=== PATIENT | female | born 1960 | race Two or more races ===

== ENCOUNTER 2023-03-17 10:47 | Inpatient (IN) | payer BC, OTHER ==
[~2023-03-17] VITALS: Ht 165.1 cm; Wt 87.2 kg
[2023-03-17] MEDS ORDERED: ONDANSETRON HCL 4 MG/2 ML VIAL IV ONE ×3 (11:30→11:45)
[2023-03-17] MEDS ORDERED: SODIUM CHLORIDE 0.9% 1,000 ML IVB ONE ×2 (11:30→11:45)
[2023-03-17] MEDS: MAGNESIUM SULFATE 1GM/100ML 100 ML IV SCH ×2 (11:45→12:45)
[2023-03-17] MEDS ORDERED: LORazepam 2MG/ML-1ML VIAL IV ONE (11:45)
[2023-03-17] MEDS ORDERED: TETANUS-DIPTH-ACEL PERTUSSIS 0.5ML SYR Tdap IM ONE (11:45)
[2023-03-17] MEDS ORDERED: THIAMINE 100mg/ml INJ (200mg/2ml VIAL) IV ONE (11:45)
[2023-03-17] MEDS ORDERED: MVI in SODIUM CHLORIDE 0.9% 1,010 ML IV ONE (11:45)
[2023-03-17] MEDS ORDERED: PANTOPRAZOLE 40 MG/10 ML VIAL INJ IV ONE (11:45)
[2023-03-17] MEDS ORDERED: ACETAMINOPHEN 325 MG TAB PO ONE (11:45)
[2023-03-17] MEDS ORDERED: SODIUM CHLORIDE 0.9% 1,000 ML IV ONE (11:45)
[2023-03-17 11:57] LABS: Basophils # (auto) 0.1 10 ^3/uL (0-0.2); Basophils % (auto) 0.3 % (0.0-2.0); Eosinophils # (auto) 0 10 ^3/uL (0-0.8); Hematocrit 44.2 % (36.0-46.0); Hemoglobin 14.8 g/dL (12.2-16.2); Lymphocytes # (auto) 0.9 10 ^3/uL (0.4-5.4); Lymphocytes % (auto) 4.5 % (10.0-50.0); Mean Corpuscular Hemoglobin 30.6 pg (28.0-32.0); Mean Corpuscular Hgb Conc. 33.6 g/dL (32.0-36.0); Mean Corpuscular Volume 91.1 fL (80.0-100.0); Monocytes # (auto) 2.5 10 ^3/uL (0-1.3); Monocytes % (auto) 13.1 % (0.0-12.0); Neutrophils # (auto) 15.9 10 ^3/uL (1.6-8.6); Neutrophils % (auto) 82.1 % (37.0-80.0); Red Blood Cells 4.85 10^6/uL (4.0-5.20); Red Cell Distribution Width 13.8 % (11.8-14.3); White Blood Cell 19.4 10^3/uL (4.4-10.8)
[2023-03-17 12:12] LABS: INR 1.09 (0.9-1.15); Partial Thromboplastin Time 29.3 SEC (24.5-34.5); Prothrombin Time 11.4 sec (9.3-11.8)
[2023-03-17 12:33] LABS: Alanine Aminotransferase 31 U/L (7-40); Albumin 4.4 g/dL (3.2-4.8); Alkaline Phosphatase 75 U/L (46-116); Anion Gap 12 (5-15); Aspartate Aminotransferase 21 U/L (13-40); BUN/Creatinine Ratio 19.7 (10.0-20.0); Bilirubin, Total 1.5 mg/dL (0.2-1.0); Blood Urea Nitrogen 24 mg/dL (9-23); Calcium 10.8 mg/dL (8.5-10.1); Carbon Dioxide 24 mmol/L (20-30); Chloride 104 mmol/L (98-107); Glucose 145 mg/dL (74-106); Potassium 3.8 mmol/L (3.5-5.1); Sodium 140 mmol/L (136-145); Total Protein 6.6 g/dL (5.7-8.2)
[2023-03-17 12:42] LABS: Acetaminophen < 2.0 UG/ML (10.0-20.0)
[2023-03-17 12:43] LABS: Salicylate < 3.0 mg/dL (2.8-20.0)
[2023-03-17 12:45] LABS: Urine Bacteria NONE SEEN /hpf (None Seen); Urine Blood Negative /uL (Negative); Urine Clarity Clear (Clear); Urine Color Yellow (Yellow); Urine Hyaline Cast MANY /lpf (0 - 2); Urine Mucus FEW (None Seen); Urine Protein, UAD TRACE (Negative); Urine Specific Gravity 1.017 (1.001-1.035); Urine Urobilinogen Normal (Negative); Urine WBC 1 /hpf (0 - 5); Urine pH 5.5 (5.0-8.0)
[2023-03-17 13:03] LABS: Amphetamine Screen, Urine Neg (NEGATIVE)
[2023-03-17 13:04] LABS: Barbiturate Scree,Urine Neg (NEGATIVE); Benzodiazephine Screen, Urine Neg (NEGATIVE); Cannabinoid Screen, Urine Neg (NEGATIVE); Cocaine Screen, Urine Neg (NEGATIVE); Opiate Scree,Urine Neg (NEGATIVE); Phencyclidine Screen, Urine Neg (NEGATIVE)
[2023-03-17 13:40] LABS: Magnesium 2.1 mg/dL (1.6-2.6)
[2023-03-17] MEDS ORDERED: PIPERACILLIN-TAZOB 3.375GM 100 ML IV ONE (14:15)
[2023-03-17] MEDS ORDERED: ALBUMIN 25% 100 ML IV ONE (14:15)
[2023-03-17] MEDS ORDERED: SODIUM CHLORIDE 0.9% 2,100 ML IV ONE (14:15)
[2023-03-17] MEDS ORDERED: VANCOMYCIN PER PHARMACY 0 MG IV SCH ×2 (14:15→16:00)
[2023-03-17 14:36] LABS: Lactic Acid w/Reflex 2.2 mmol/L (0.4-2.0)
[2023-03-17] MEDS ORDERED: ONDANSETRON HCL 4 MG/2 ML VIAL IV PRN (16:00)
[2023-03-17] MEDS: SODIUM CHLORIDE 0.9% 1,000 ML IV SCH (16:00)
[2023-03-17] MEDS ORDERED: NITROGLYCERIN 0.4 MG SL TAB SL PRN (16:00)
[2023-03-17] MEDS ORDERED: ACETAMINOPHEN 325 MG TAB PO PRN (16:00)
[2023-03-17] MEDS ORDERED: MORPHINE SULFATE INJ 2 MG/ml SYRG IV PRN (16:00)
[2023-03-17] MEDS ORDERED: VANCOMYCIN 1GM/250ML 250 ML IV ONE (18:00)
[2023-03-17 19:55] VITALS: PULSE 102; RESP 15; O2SAT 98
[2023-03-17] MEDS: CEFEPIME 1GM/ 50ML 50 ML IV SCH (22:29)
[2023-03-18] MEDS: SODIUM CHLORIDE 0.9% 1,000 ML IV SCH ×3 (00:01→16:41)
[2023-03-18] MEDS: MORPHINE SULFATE INJ 2 MG/ml SYRG IV PRN (00:17)
[2023-03-18] MEDS: HYDROcodone-ACET 5/325MG TAB PO PRN (02:58)
[2023-03-18 05:00] LABS: Basophils # (auto) 0 10 ^3/uL (0-0.2); Basophils % (auto) 0.3 % (0.0-2.0); Eosinophils # (auto) 0.1 10 ^3/uL (0-0.8); Hematocrit 38.4 % (36.0-46.0); Hemoglobin 12.9 g/dL (12.2-16.2); Lymphocytes # (auto) 1.7 10 ^3/uL (0.4-5.4); Mean Corpuscular Hemoglobin 31.1 pg (28.0-32.0); Mean Corpuscular Hgb Conc. 33.6 g/dL (32.0-36.0); Mean Corpuscular Volume 92.4 fL (80.0-100.0); Monocytes # (auto) 1.5 10 ^3/uL (0-1.3); Neutrophils # (auto) 8.1 10 ^3/uL (1.6-8.6); Neutrophils % (auto) 70.7 % (37.0-80.0); Red Blood Cells 4.16 10^6/uL (4.0-5.20); Red Cell Distribution Width 14.1 % (11.8-14.3); White Blood Cell 11.4 10^3/uL (4.4-10.8)
[2023-03-18 05:25] LABS: Alanine Aminotransferase 25 U/L (7-40); Albumin 3.4 g/dL (3.2-4.8); Alkaline Phosphatase 62 U/L (46-116); Anion Gap 7 (5-15); Aspartate Aminotransferase 23 U/L (13-40); BUN/Creatinine Ratio 17.6 (10.0-20.0); Bilirubin, Total 1.1 mg/dL (0.2-1.0); Blood Urea Nitrogen 9 mg/dL (9-23); Calcium 8.9 mg/dL (8.7-10.4); Carbon Dioxide 24 mmol/L (20-30); Glucose 87 mg/dL (74-106); Potassium 3.3 mmol/L (3.5-5.1); Sodium 145 mmol/L (136-145); Total Protein 5.3 g/dL (5.7-8.2)
[2023-03-18 05:31] LABS: Chloride 114 mmol/L (98-107)
[2023-03-18 05:51] LABS: Triglycerides 53 mg/dL (< 150)
[2023-03-18 05:52] LABS: LDL Cholesterol 43 mg/dL (< 100)
[2023-03-18 05:53] LABS: Cholesterol 109 mg/dL (< 200); HDL Cholesterol 48 mg/dL (40-59)
[2023-03-18 07:39] VITALS: PULSE 103; RESP 19; O2SAT 97
[2023-03-18] MEDS: ENOXAPARIN SOD 40 MG/0.4 ML SYRINGE SC SCH (09:38)
[2023-03-18] MEDS: PANTOPRAZOLE 40 MG/10 ML VIAL INJ IV SCH (09:38)
[2023-03-18] MEDS: CEFEPIME 1GM/ 50ML 50 ML IV SCH ×2 (10:03→22:15)
[2023-03-18] MEDS: VANCOMYCIN 1GM/250ML 250 ML IV SCH (11:12)
[2023-03-18] MEDS ORDERED: SODIUM CHLORIDE 0.9% 500 ML IV ONE (12:00)
[2023-03-18] MEDS: FOLIC ACID 1 MG, MULTIPLE VITAMIN 10 ML, MAGNESIUM SULF SDV 50% 8 MEQ, THIAMINE INJ 100... INJ SCH ×5 (12:00)
[2023-03-18] MEDS ORDERED: LORazepam 2MG/ML-1ML VIAL IV PRN (12:00)
[2023-03-18 21:13] VITALS: PULSE 113; RESP 22; O2SAT 95
[2023-03-19] MEDS: SODIUM CHLORIDE 0.9% 1,000 ML IV SCH ×3 (00:30→16:00)
[2023-03-19] MEDS: MORPHINE SULFATE INJ 2 MG/ml SYRG IV PRN (02:28)
[2023-03-19] MEDS: VANCOMYCIN 1GM/250ML 250 ML IV SCH ×2 (04:52→20:04)
[2023-03-19 08:00] VITALS: PULSE 97; RESP 18
[2023-03-19] MEDS ORDERED: DEXTROSE (50%) 50ML SYRG IV PRN (08:45)
[2023-03-19 09:37] LABS: Alanine Aminotransferase 26 U/L (7-40); Albumin 3.6 g/dL (3.2-4.8); Alkaline Phosphatase 65 U/L (46-116); Anion Gap 5 (5-15); Aspartate Aminotransferase 17 U/L (13-40); Calcium 9.3 mg/dL (8.5-10.1); Carbon Dioxide 29 mmol/L (20-30); Chloride 109 mmol/L (98-107); Glucose 104 mg/dL (74-106); Potassium 3.4 mmol/L (3.5-5.1); Sodium 143 mmol/L (136-145)
[2023-03-19 09:38] LABS: Bilirubin, Total 1.1 mg/dL (0.2-1.0); Total Protein 5.8 g/dL (5.7-8.2)
[2023-03-19 09:39] LABS: BUN/Creatinine Ratio 8.6 (10.0-20.0); Blood Urea Nitrogen < 5 mg/dL (9-23)
[2023-03-19] MEDS: CEFEPIME 1GM/ 50ML 50 ML IV SCH ×2 (10:26→21:44)
[2023-03-19] MEDS: PANTOPRAZOLE 40 MG/10 ML VIAL INJ IV SCH (10:26)
[2023-03-19] MEDS: ENOXAPARIN SOD 40 MG/0.4 ML SYRINGE SC SCH (10:26)
[2023-03-19] MEDS: InsuLIN REG 1unit/0.01ml Soln (100units/ml) SC SCH ×3 (11:30→21:45)
[2023-03-19] MEDS: ACCU-CHEK COMFORT CURVE STRIP VI SCH ×3 (11:30→21:45)
[2023-03-19] MEDS: FOLIC ACID 1 MG, MULTIPLE VITAMIN 10 ML, MAGNESIUM SULF SDV 50% 8 MEQ, THIAMINE INJ 100... INJ SCH ×5 (12:58)
[2023-03-19 19:20] VITALS: PULSE 92; RESP 20; O2SAT 96
[2023-03-19] MEDS: HYDROcodone-ACET 5/325MG TAB PO PRN (21:45)
[2023-03-20] MEDS: SODIUM CHLORIDE 0.9% 1,000 ML IV SCH ×3 (00:32→16:00)
[2023-03-20 05:20] LABS: Calcium 8.7 mg/dL (8.7-10.4); Chloride 107 mmol/L (98-107); Potassium 3.1 mmol/L (3.5-5.1); Sodium 141 mmol/L (136-145)
[2023-03-20 05:26] LABS: Glucose 107 mg/dL (74-106)
[2023-03-20 05:27] LABS: Carbon Dioxide 27 mmol/L (20-30)
[2023-03-20 05:38] LABS: BUN/Creatinine Ratio 11.6 (10.0-20.0); Blood Urea Nitrogen < 5 mg/dL (9-23)
[2023-03-20 06:18] LABS: Anion Gap 5 (5-15)
[2023-03-20] MEDS: InsuLIN REG 1unit/0.01ml Soln (100units/ml) SC SCH ×4 (06:27→22:24)
[2023-03-20] MEDS: ACCU-CHEK COMFORT CURVE STRIP VI SCH ×4 (06:28→22:09)
[2023-03-20 08:17] LABS: Basophils # (auto) 0 10 ^3/uL (0-0.2); Basophils % (auto) 0.5 % (0.0-2.0); Eosinophils # (auto) 0.3 10 ^3/uL (0-0.8); Eosinophils % (auto) 3.5 % (0.0-7.0); Hematocrit 40.2 % (36.0-46.0); Hemoglobin 13.7 g/dL (12.2-16.2); Lymphocytes # (auto) 1.2 10 ^3/uL (0.4-5.4); Lymphocytes % (auto) 12.7 % (10.0-50.0); Mean Corpuscular Hemoglobin 31.5 pg (28.0-32.0); Mean Corpuscular Hgb Conc. 34.1 g/dL (32.0-36.0); Mean Corpuscular Volume 92.3 fL (80.0-100.0); Monocytes # (auto) 1.2 10 ^3/uL (0-1.3); Monocytes % (auto) 13.4 % (0.0-12.0); Neutrophils # (auto) 6.4 10 ^3/uL (1.6-8.6); Neutrophils % (auto) 69.9 % (37.0-80.0); Nucleated Red Blood Cells % 0.1 %; Red Blood Cells 4.36 10^6/uL (4.0-5.20); Red Cell Distribution Width 13.6 % (11.8-14.3); White Blood Cell 9.2 10^3/uL (4.4-10.8)
[2023-03-20 08:30] VITALS: PULSE 92; RESP 22; O2SAT 94
[2023-03-20] MEDS ORDERED: POTASSIUM CHL 20 Meq TABLET PO ONE (08:30)
[2023-03-20] MEDS: CEFEPIME 1GM/ 50ML 50 ML IV SCH (09:01)
[2023-03-20] MEDS: VANCOMYCIN 1GM/250ML 250 ML IV SCH (09:04)
[2023-03-20] MEDS: LABETALOL HCL 5 MG/ML 4ML SYRINGE IV PRN ×2 (09:12→16:35)
[2023-03-20] MEDS: PANTOPRAZOLE 40 MG/10 ML VIAL INJ IV SCH (10:28)
[2023-03-20] MEDS: ENOXAPARIN SOD 40 MG/0.4 ML SYRINGE SC SCH (10:28)
[2023-03-20] MEDS: FOLIC ACID 1 MG, MULTIPLE VITAMIN 10 ML, MAGNESIUM SULF SDV 50% 8 MEQ, THIAMINE INJ 100... INJ SCH ×5 (12:45)
[2023-03-20] MEDS: DOCUSATE SOD 100 MG CAP PO PRN (15:49)
[2023-03-20] MEDS: HYDROcodone-ACET 5/325MG TAB PO PRN (15:50)
[2023-03-20 19:01] VITALS: PULSE 81; RESP 18; O2SAT 91
[2023-03-20 20:00] VITALS: PULSE 99
[2023-03-20] MEDS ORDERED: CHOL1CAP21 PO (20:56)
[2023-03-20] MEDS ORDERED: LOSA100T33 PO (20:58)
[2023-03-20 21:31] VITALS: BP 158/80; PULSE 110; RESP 22; TEMP 98.2; O2SAT 92
[2023-03-21] VITALS (7 sets, daily range): BP systolic 129–157; BP diastolic 71–97; PULSE 91–121; RESP 16–19; TEMP 98.2–98.7; O2SAT 93–97
[2023-03-21] MEDS: SODIUM CHLORIDE 0.9% 1,000 ML IV SCH ×4 (02:09→21:49)
[2023-03-21] MEDS: InsuLIN REG 1unit/0.01ml Soln (100units/ml) SC SCH ×4 (07:00→21:53)
[2023-03-21] MEDS: ACCU-CHEK COMFORT CURVE STRIP VI SCH ×4 (07:11→21:53)
[2023-03-21] MEDS: HYDROcodone-ACET 5/325MG TAB PO PRN ×2 (07:14→20:09)
[2023-03-21 07:17] LABS: Basophils # (auto) 0 10 ^3/uL (0-0.2); Basophils % (auto) 0.5 % (0.0-2.0); Eosinophils # (auto) 0.2 10 ^3/uL (0-0.8); Eosinophils % (auto) 4.2 % (0.0-7.0); Hematocrit 40.4 % (36.0-46.0); Hemoglobin 13.7 g/dL (12.2-16.2); Lymphocytes # (auto) 0.8 10 ^3/uL (0.4-5.4); Lymphocytes % (auto) 14.4 % (10.0-50.0); Mean Corpuscular Hemoglobin 30.9 pg (28.0-32.0); Mean Corpuscular Hgb Conc. 33.8 g/dL (32.0-36.0); Mean Corpuscular Volume 91.4 fL (80.0-100.0); Monocytes # (auto) 0.6 10 ^3/uL (0-1.3); Monocytes % (auto) 11.4 % (0.0-12.0); Neutrophils # (auto) 3.8 10 ^3/uL (1.6-8.6); Neutrophils % (auto) 69.5 % (37.0-80.0); Red Blood Cells 4.42 10^6/uL (4.0-5.20); White Blood Cell 5.4 10^3/uL (4.4-10.8)
[2023-03-21 07:36] LABS: Albumin 3.5 g/dL (3.2-4.8); Alkaline Phosphatase 327 U/L (46-116); Anion Gap 7 (5-15); Calcium 8.8 mg/dL (8.7-10.4); Carbon Dioxide 27 mmol/L (20-30); Chloride 108 mmol/L (98-107); Glucose 99 mg/dL (74-106); Magnesium 2.3 mg/dL (1.6-2.6); Potassium 3.8 mmol/L (3.5-5.1); Sodium 142 mmol/L (136-145)
[2023-03-21 07:37] LABS: Bilirubin, Total 3.8 mg/dL (0.2-1.0); Total Protein 5.7 g/dL (5.7-8.2)
[2023-03-21 07:48] LABS: Aspartate Aminotransferase 1784 U/L (13-40)
[2023-03-21 08:30] LABS: Alanine Aminotransferase 1925 U/L (7-40); BUN/Creatinine Ratio 10.4 (10.0-20.0); Blood Urea Nitrogen < 5 mg/dL (9-23)
[2023-03-21] MEDS: PANTOPRAZOLE 40 MG/10 ML VIAL INJ IV SCH (09:41)
[2023-03-21] MEDS: ENOXAPARIN SOD 40 MG/0.4 ML SYRINGE SC SCH (09:42)
[2023-03-21] MEDS: FOLIC ACID 1 MG, MULTIPLE VITAMIN 10 ML, MAGNESIUM SULF SDV 50% 8 MEQ, THIAMINE INJ 100... INJ SCH ×5 (12:00)
[2023-03-21] MEDS ORDERED: FOLIC ACID 1 MG, MULTIPLE VITAMIN 10 ML, MAGNESIUM SULF SDV 50% 8 MEQ, THIAMINE INJ 100... INJ ONE ×5 (20:00)
[2023-03-21] MEDS: DOCUSATE SOD 100 MG CAP PO PRN (21:48)
[2023-03-22] VITALS (7 sets, daily range): BP systolic 124–144; BP diastolic 63–86; PULSE 98–121; RESP 16–20; TEMP 97.6–98.5; O2SAT 90–94
[2023-03-22] MEDS: ACCU-CHEK COMFORT CURVE STRIP VI SCH ×4 (06:24→22:08)
[2023-03-22] MEDS: InsuLIN REG 1unit/0.01ml Soln (100units/ml) SC SCH ×4 (06:30→22:00)
[2023-03-22 06:37] LABS: Basophils # (auto) 0 10 ^3/uL (0-0.2); Basophils % (auto) 0.5 % (0.0-2.0); Eosinophils # (auto) 0.4 10 ^3/uL (0-0.8); Eosinophils % (auto) 6.5 % (0.0-7.0); Hematocrit 39.9 % (36.0-46.0); Hemoglobin 13.5 g/dL (12.2-16.2); Lymphocytes # (auto) 0.9 10 ^3/uL (0.4-5.4); Lymphocytes % (auto) 15.3 % (10.0-50.0); Mean Corpuscular Hemoglobin 31.4 pg (28.0-32.0); Mean Corpuscular Hgb Conc. 33.9 g/dL (32.0-36.0); Mean Corpuscular Volume 92.8 fL (80.0-100.0); Monocytes # (auto) 0.8 10 ^3/uL (0-1.3); Monocytes % (auto) 14.1 % (0.0-12.0); Neutrophils # (auto) 3.8 10 ^3/uL (1.6-8.6); Neutrophils % (auto) 63.6 % (37.0-80.0); Red Cell Distribution Width 14.2 % (11.8-14.3)
[2023-03-22 06:49] LABS: Albumin 3.2 g/dL (3.2-4.8); Alkaline Phosphatase 300 U/L (46-116); Anion Gap 8 (5-15); Aspartate Aminotransferase 667 U/L (13-40); Bilirubin, Total 3.9 mg/dL (0.2-1.0); Calcium 8.3 mg/dL (8.7-10.4); Carbon Dioxide 26 mmol/L (20-30); Chloride 111 mmol/L (98-107); Glucose 107 mg/dL (74-106); Magnesium 2.3 mg/dL (1.6-2.6); Potassium 4.6 mmol/L (3.5-5.1); Sodium 145 mmol/L (136-145)
[2023-03-22 07:01] LABS: BUN/Creatinine Ratio 10.4 (10.0-20.0); Blood Urea Nitrogen < 5 mg/dL (9-23)
[2023-03-22] MEDS: SODIUM CHLORIDE 0.9% 1,000 ML IV SCH ×3 (08:00→22:07)
[2023-03-22] MEDS: PANTOPRAZOLE 40 MG/10 ML VIAL INJ IV SCH (09:03)
[2023-03-22] MEDS: ENOXAPARIN SOD 40 MG/0.4 ML SYRINGE SC SCH (09:03)
[2023-03-22] MEDS: FOLIC ACID 1 MG, MULTIPLE VITAMIN 10 ML, MAGNESIUM SULF SDV 50% 8 MEQ, THIAMINE INJ 100... INJ SCH ×5 (13:09)
[2023-03-22] MEDS: HYDROcodone-ACET 5/325MG TAB PO PRN (22:06)
[2023-03-22] MEDS: DOCUSATE SOD 100 MG CAP PO PRN (22:06)
[2023-03-23] VITALS (7 sets, daily range): BP systolic 123–138; BP diastolic 67–88; PULSE 96–117; RESP 18; TEMP 97.5–98.8; O2SAT 91–95
[2023-03-23] MEDS: InsuLIN REG 1unit/0.01ml Soln (100units/ml) SC SCH ×4 (06:24→21:35)
[2023-03-23] MEDS: ACCU-CHEK COMFORT CURVE STRIP VI SCH ×4 (06:24→21:34)
[2023-03-23] MEDS: SODIUM CHLORIDE 0.9% 1,000 ML IV SCH ×2 (06:25→16:00)
[2023-03-23] MEDS: ENOXAPARIN SOD 40 MG/0.4 ML SYRINGE SC SCH (09:57)
[2023-03-23] MEDS: PANTOPRAZOLE 40 MG/10 ML VIAL INJ IV SCH (09:57)
[2023-03-23] MEDS: FOLIC ACID 1 MG, MULTIPLE VITAMIN 10 ML, MAGNESIUM SULF SDV 50% 8 MEQ, THIAMINE INJ 100... INJ SCH ×5 (12:45)
[2023-03-23] MEDS: METOPROLOL TARTRATE 25 MG TAB PO SCH ×2 (13:42→21:35)
[2023-03-23] MEDS: MAGNESIUM SULFATE 1GM/100ML 100 ML IV SCH ×2 (14:16→16:03)
[2023-03-23 14:25] LABS: Chloride 110 mmol/L (98-107); Sodium 144 mmol/L (136-145)
[2023-03-23 14:26] LABS: Anion Gap 6 (5-15); Calcium 8.7 mg/dL (8.5-10.1); Carbon Dioxide 28 mmol/L (20-30)
[2023-03-23 14:31] LABS: Glucose 128 mg/dL (74-106)
[2023-03-23 14:39] LABS: BUN/Creatinine Ratio 9.6 (10.0-20.0); Blood Urea Nitrogen < 5 mg/dL (9-23)
[2023-03-23] MEDS: HYDROcodone-ACET 5/325MG TAB PO PRN (21:36)
[2023-03-23] MEDS: DOCUSATE SOD 100 MG CAP PO PRN (21:36)
[2023-03-24 05:00] VITALS: BP 145/93; PULSE 115; RESP 21; TEMP 98.5; O2SAT 91
[2023-03-24] MEDS: ACCU-CHEK COMFORT CURVE STRIP VI SCH ×2 (06:38→11:30)
[2023-03-24] MEDS: InsuLIN REG 1unit/0.01ml Soln (100units/ml) SC SCH ×2 (06:38→11:30)
[2023-03-24] MEDS: SODIUM CHLORIDE 0.9% 1,000 ML IV SCH ×2 (06:40→08:00)
[2023-03-24 08:00] VITALS: PULSE 117; RESP 16
[2023-03-24] MEDS: METOPROLOL TARTRATE 25 MG TAB PO SCH (08:19)
[2023-03-24] MEDS ORDERED: ADENOSINE 73 MG in GIVE UN-DILUTED 0 ML IV STA (08:29)
[2023-03-24 09:00] VITALS: BP 127/83; PULSE 108; RESP 16; TEMP 98.2; O2SAT 100
[2023-03-24 09:13] LABS: Hepatitis B Surface Antigen Negative (Negative)
[2023-03-24 09:33] LABS: Hepatitis A Ab IgM Negative
[2023-03-24 09:34] LABS: Hepatitis B Core IgM Negative; Hepatitis C Antibody Negative (Negative)
[2023-03-24] MEDS: PANTOPRAZOLE 40 MG/10 ML VIAL INJ IV SCH (10:10)
[2023-03-24] MEDS: ENOXAPARIN SOD 40 MG/0.4 ML SYRINGE SC SCH (10:11)
[2023-03-24 10:35] LABS: Basophils # (auto) 0.1 10 ^3/uL (0-0.2); Basophils % (auto) 0.7 % (0.0-2.0); Eosinophils # (auto) 0.4 10 ^3/uL (0-0.8); Eosinophils % (auto) 3.3 % (0.0-7.0); Hematocrit 40.6 % (36.0-46.0); Hemoglobin 13.5 g/dL (12.2-16.2); Lymphocytes # (auto) 1.1 10 ^3/uL (0.4-5.4); Lymphocytes % (auto) 10.3 % (10.0-50.0); Mean Corpuscular Hemoglobin 30.6 pg (28.0-32.0); Mean Corpuscular Hgb Conc. 33.4 g/dL (32.0-36.0); Mean Corpuscular Volume 91.8 fL (80.0-100.0); Monocytes # (auto) 1.4 10 ^3/uL (0-1.3); Monocytes % (auto) 12.7 % (0.0-12.0); Neutrophils # (auto) 8.1 10 ^3/uL (1.6-8.6); Red Blood Cells 4.42 10^6/uL (4.0-5.20); Red Cell Distribution Width 14.1 % (11.8-14.3)
[2023-03-24] MEDS ORDERED: MULTTAB99 GT (10:40)
[2023-03-24] MEDS ORDERED: METO25TA36 PO (10:40)
[2023-03-24] MEDS ORDERED: FOLI-119 PO (10:40)
[2023-03-24] MEDS ORDERED: THIA100T13 PO (10:40)
[2023-03-24 10:59] LABS: Alanine Aminotransferase 709 U/L (7-40); Alkaline Phosphatase 253 U/L (46-116); Anion Gap 5 (5-15); Aspartate Aminotransferase 147 U/L (13-40); Calcium 8.7 mg/dL (8.7-10.4); Carbon Dioxide 26 mmol/L (20-30); Chloride 112 mmol/L (98-107); Glucose 102 mg/dL (74-106); Magnesium 2.2 mg/dL (1.6-2.6); Potassium 3.5 mmol/L (3.5-5.1); Sodium 143 mmol/L (136-145)
[2023-03-24 11:00] LABS: Albumin 3.6 g/dL (3.2-4.8); BUN/Creatinine Ratio 9.8 (10.0-20.0); Bilirubin, Total 1.7 mg/dL (0.2-1.0); Blood Urea Nitrogen < 5 mg/dL (9-23)
[2023-03-24] MEDS: FOLIC ACID 1 MG, MULTIPLE VITAMIN 10 ML, MAGNESIUM SULF SDV 50% 8 MEQ, THIAMINE INJ 100... INJ SCH ×5 (12:00)
[2023-03-24 14:05] VITALS: BP 137/87; PULSE 108; RESP 16; TEMP 98; O2SAT 95
== END 2023-03-24 14:57 | disposition home or self-care (01) | DRG 871 ==
LOC: EDBD 10:47 → ER 10:47 → TELE-CENTR 15:57 → TELE 15:57 → TELE-CENTR 03-20 18:58
PROVIDERS: ADMIT Nurse Practitioner Family; ATTEND Internal Medicine Geriatric Medicine
DX: A41.9 Sepsis, unspecified organism (principal); G92.8 Other toxic encephalopathy; S06.0XAA Concussion with loss of consciousness status unknown, initial encounter; F10.239 Alcohol dependence with withdrawal, unspecified; N17.9 Acute kidney failure, unspecified; I47.20 Ventricular tachycardia, unspecified; E86.0 Dehydration; I44.7 Left bundle-branch block, unspecified; T48.1X2A Poisoning by skeletal muscle relaxants [neuromuscular blocking agents], intentional self-harm, initial encounter; F32.A Depression, unspecified; W18.39XA Other fall on same level, initial encounter; I12.9 Hypertensive chronic kidney disease with stage 1 through stage 4 chronic kidney disease, or unspecified chronic kidney disease; R74.01 Elevation of levels of liver transaminase levels; S09.93XA Unspecified injury of face, initial encounter; S02.2XXA Fracture of nasal bones, initial encounter for closed fracture; N18.30 Chronic kidney disease, stage 3 unspecified; E87.6 Hypokalemia; Y92.89 Other specified places as the place of occurrence of the external cause; Z79.899 Other long term (current) drug therapy; Z59.86 Financial insecurity; Z80.8 Family history of malignant neoplasm of other organs or systems; Z82.0 Family history of epilepsy and other diseases of the nervous system; Z82.49 Family history of ischemic heart disease and other diseases of the circulatory system; Y93.89 Activity, other specified; Y99.8 Other external cause status
CPT/HCPCS: 36415; 70450; 70486; 71045; 71275; 72125; 74176; 78452; 80048; 80053; 80061; 80074; 80202; 80307; 80320; 80329; 81001; 82550; 82553; 82962; 83036; 83605; 83735; 83880; 84443; 84484; 85025; 85379; 85610; 85730; 86850; 86900; 86901; 87040; 87086; 90471; 90715; 93005; 93017; 93306; 96365; 96375; 97116; 97163; 97530; C9113; G0378; J0153; J1815; J2405; J2543; J3490